=== PATIENT | male | born 1995 | race African-American/Black ===

== ENCOUNTER 2023-04-25 13:03 | Observation (INO) ==
--- NOTE | 2023-04-25 13:28 | Emergency Department Note ---
Impression & Plan Chest pain, Elevated lipase ED Provider Note CHIEF COMPLAINT: Chest pain HISTORY OF PRESENT ILLNESS: This 27-year-old male patient presents to the emergency department via private vehicle for evaluation of chest pain. The patient states he has been experiencing chest pain for about 4 years. This is intermittent, sometimes with exertion, sometimes with lying flat. Patient states today at work, he noticed he had about 1 minute of sharp chest pain "in my heart". The patient states that the pain went away on its own. There is no associated shortness of breath. He denies any recent illness or fever. No recent cough or congestion. No history of PE, AR, cardiac disease. The patient denies abdominal pain, nausea, or vomiting. He did not take any medication for the symptoms. He states today, he was walking when the pain started, but notes often over the past 4 years, he will get the pain when lying down and resting. Patient states he does not like to go to doctors and is only here because his mother encouraged him to come in. Patient denies any IV drug use REVIEW OF SYSTEMS: A 10 system review of systems was performed with positives and pertinent negatives listed in the history of present illness. All other systems were reviewed and are negative. ALLERGIES: None PHYSICAL EXAM: VITALS: Vitals are noted on the nurse's note and reviewed by myself. Vital signs stable. GENERAL: This is a 27-year-old male, in no acute distress, nondiaphoretic, well- developed well-nourished. SKIN: The skin was without rashes, erythema, edema, or bruising. There is no tenting of the skin. Capillary refill less than 2 seconds. HEAD: Normocephalic atraumatic. EYES: Conjunctivae without injection, sclerae without icterus. Extraocular movements intact. NOSE: Patent, turbinates without inflammation or discharge. No sinus tenderness. MOUTH: Mucous membranes moist. Tonsils are not enlarged. Pharynx without erythema or exudate. Uvula midline. Airway patent. Tongue does not deviate. NECK: Supple without nuchal rigidity. No lymphadenopathy. Cervical spine is no ntender. No JVD. HEART: Regular rate and rhythm without murmurs gallops or rubs. LUNGS: Clear to auscultation bilaterally without wheezes, rales or rhonchi. No retractions or accessory muscle use. ABDOMEN: Positive bowel sounds x 4. Soft, nontender, without masses or organomegaly. Kwon sign negative. No guarding or rebound tenderness. MUSCULOSKELETAL: No muscle atrophy, erythema, or edema noted. Full range of motion without joint tenderness in all extremities. No tenderness to palpation. Normal gait. Strength 5/5 throughout. NEURO: Patient was alert and oriented to person place and time. No focal neurological deficits. An order was placed for continuous phototypesetting equipment monitor. The monitor showed a normal sinus rhythm at a ventricular rate of 81 bpm, per my interpretation. EKG, per my interpretation: Normal sinus rhythm with a ventricular rate of [address] elevation or depression. No T wave inversion. No history of previous EKGs available for comparison. Repeat EKG, per my interpretation: Normal sinus rhythm with a ventricular rate of [address] elevation or depression. No T wave inversion. No significant change when compared to EKG completed earlier in the day EMERGENCY DEPARTMENT COURSE: The patient was seen and evaluated as above. IV access obtained, labs drawn. Patient was medicated with IV fluids. Labs reviewed by myself. No leukocytosis, anemia, thrombocytopenia. Renal, hepatic function and electrolytes without significant abnormality. Initial troponin was mildly elevated at 25.1. Lipase was elevated at 202. COVID-19 testing was negative. Given the elevated troponin, I did recommend repeat EKG and troponin. This was completed approximately 2-1/2 hours after the onset of the patient's pain. Troponin remained mildly elevated. EKG was unchanged. Given the troponin elevation and the patient's history of pain, as well as the patient's lack of outpatient care, I did recommend admission for further evaluation of his symptoms. The patient was agreeable with the treatment plan. He was given return precautions. All questions answered to the patient's satisfaction prior to discharge. Discharge instructions reviewed, patient was discharged home in good condition. Differential diagnosis includes cardiac ischemia, aortic dissection, pulmonary embolism, pneumothorax, pneumonia, pericarditis, myocarditis, esophageal rupture, GERD, cholecystitis, pancreatitis, musculoskeletal, as well as other pathologies. I attest that I have personally reviewed the patient's current medication list. Patient was found to have normal blood pressure on screening and does not require follow-up. The chart was completed utilizing [employer] voice recognition software. Grammatical errors, random word insertions, pronoun errors, and incomplete sentences are an occasional consequence of this system due to software limitations, ambient noise, and hardware issues. Any formal questions or concerns about the content, text, or information contained within the body of this dictation should be directly addressed to the provider for clarification. Past Med/Surg History Medical History ADHD Surgical History (Updated 04/25/23 @ 17:18 by Nahomy Shah PA-C) No pertinent past surgical history Family History Other Family history unknown Social History Smoking Status: Never smoker Do You Dip or Chew Tobacco: No; Hx Alcohol Use: No Hx Substance Use: Yes Non-Prescribed Medications: Marijuana Preferred Language: Barbadian Communication Ability: Effective Arabic Teacher Required: No Beliefs That Will Affect Care: None Current Living Situation: Significant Other Feels Safe at Home: Yes Safety Concerns: Feels Safe At This Time Assistive Devices: None Allergies Allergies Allergy/AdvReac Type Severity Reaction Status Date / Time No Known Allergies Allergy Unverified 04/25/23 16:54 Home Meds Home Medications Medication Instructions Recorded Confirmed No Known Home Medications 04/25/23 04/25/23 Results & Data (ED) Vital Signs Vital Signs - 24 hr 04/25/23 13:06 04/25/23 13:31 04/25/23 13:32 Temperature 36.0 C L Temperature Source Temporal Artery Scan Pulse Rate 82 74 Pulse Rate [Right Apical] Respiratory Rate 16 Respiratory Effort / Characteristics Respiratory Depth Respiratory Pattern Blood Pressure 135/61 Blood Pressure [Right Arm] Blood Pressure Mean 85 Blood Pressure Mean [Right Arm] Pulse Oximetry 97 99 Oxygen Delivery Method Room Air Room Air Sepsis Recent Fever Within 48 Hours No Sepsis New/Unexplained Change in Mental Status No Sepsis Action Taken by Nursing No Action Required 04/25/23 13:25 04/25/23 14:10 04/25/23 15:00 Temperature Temperature Source Pulse Rate 66 58 L Pulse Rate [Right Apical] 70 Respiratory Rate 18 20 24 Respiratory Effort / Characteristics Non-Labored Spontaneous Respiratory Depth Normal Respiratory Pattern Regular Blood Pressure 138/71 Blood Pressure [Right Arm] 144/72 H Blood Pressure Mean 93 Blood Pressure Mean [Right Arm] 96 Pulse Oximetry 99 99 100 Oxygen Delivery Method Room Air Room Air Room Air Sepsis Recent Fever Within 48 Hours Sepsis New/Unexplained Change in Mental Status Sepsis Action Taken by Nursing 04/25/23 16:19 04/25/23 17:01 Temperature Temperature Source Pulse Rate 74 73 Pulse Rate [Right Apical] Respiratory Rate 21 14 Respiratory Effort / Characteristics Respiratory Depth Respiratory Pattern Blood Pressure 160/72 H 174/109 H Blood Pressure [Right Arm] Blood Pressure Mean 101 130 Blood Pressure Mean [Right Arm] Pulse Oximetry 99 100 Oxygen Delivery Method Room Air Room Air Sepsis Recent Fever Within 48 Hours Sepsis New/Unexplained Change in Mental Status Sepsis Action Taken by Nursing Laboratory Data 04/25/23 13:24 04/25/23 13:24 Lab Results 04/25/23 04/25/23 04/25/23 Range/Units 13:24 13:24 14:52 WBC 6.86 (4.8-10.8) K/ul RBC 5.15 (4.70-6.10) M/uL Hgb 15.1 (14.0-18.0) g/dl Hct 41.6 L (42.0-52.0) % MCV 80.8 (80.0-100.0) fL MCH 29.3 (25.0-34.0) pg MCHC 36.3 H (32.0-36.0) g/dL RDW Std Deviation 36.6 (36.4-46.3) fL RDW Coeff of Matthew 12.6 (11.5-14.5) % Plt Count 292 (130-400) K/uL MPV 9.8 (9.4-12.4) fL Immature Gran % (Auto) 0.1 % Neut % (Auto) 51.9 % Lymph % (Auto) 38.0 % Lamb % (Auto) 8.6 % Eos % (Auto) 1.0 % Baso % (Auto) 0.4 % Neut # (Auto) 3.55 (1.40-6.50) K/uL Lymph # (Auto) 2.61 (1.2-3.4) K/uL Lamb # (Auto) 0.59 (0.11-0.59) K/uL Eos # (Auto) 0.07 (0-0.50) K/uL Baso # (Auto) 0.03 (0-0.2) K/uL Immature Gran # (Auto) 0.01 (0.01-0.20) K/uL Sodium 141 (136-145) mmol/L Potassium 3.9 (3.5-5.1) mmol/L Chloride 107 (98-107) mmol/L Carbon Dioxide 30 (21-32) mmol/L Anion Gap 4 (3-11) BUN 17 (6-23) mg/dl Creatinine 1.20 (0.6-1.4) mg/dl Est Cr Clr Drug Dosing 85.7 ml/min Est GFR ( Amer) 94.8 ml/min Est GFR (Non-Af Amer) 81.8 ml/min BUN/Creatinine Ratio 14.2 (10-20) Glucose 64 L (70-99(Fasting)) mg/dl Calcium 9.3 (8.6-10.3) mg/dl Total Bilirubin 0.2 (0.2-1.0) mg/dl AST 28 (13-39) U/L ALT 22 (7-52) U/L Alkaline Phosphatase 61 (34-104) U/L Troponin I High Sens 25.1 H 22.7 H (0-20) pg/ml Total Protein 7.3 (6.0-8.3) gm/dl Albumin 4.5 (3.4-5.0) gm/dl Globulin 2.8 (2.5-4.0) gm/dl Albumin/Globulin Ratio 1.6 (0.9-2) Lipase 202 H (11-82) U/L SARS-CoV-2, RNA, NAAT (NEGATIVE) 04/25/23 Range/Units 16:19 WBC (4.8-10.8) K/ul RBC (4.70-6.10) M/uL Hgb (14.0-18.0) g/dl Hct (42.0-52.0) % MCV (80.0-100.0) fL MCH (25.0-34.0) pg MCHC (32.0-36.0) g/dL RDW Std Deviation (36.4-46.3) fL RDW Coeff of Matthew (11.5-14.5) % Plt Count (130-400) K/uL MPV (9.4-12.4) fL Immature Gran % (Auto) % Neut % (Auto) % Lymph % (Auto) % Lamb % (Auto) % Eos % (Auto) % Baso % (Auto) % Neut # (Auto) (1.40-6.50) K/uL Lymph # (Auto) (1.2-3.4) K/uL Lamb # (Auto) (0.11-0.59) K/uL Eos # (Auto) (0-0.50) K/uL Baso # (Auto) (0-0.2) K/uL Immature Gran # (Auto) (0.01-0.20) K/uL Sodium (136-145) mmol/L Potassium (3.5-5.1) mmol/L Chloride (98-107) mmol/L Carbon Dioxide (21-32) mmol/L Anion Gap (3-11) BUN (6-23) mg/dl Creatinine (0.6-1.4) mg/dl Est Cr Clr Drug Dosing ml/min Est GFR ( Amer) ml/min Est GFR (Non-Af Amer) ml/min BUN/Creatinine Ratio (10-20) Glucose (70-99(Fasting)) mg/dl Calcium (8.6-10.3) mg/dl Total Bilirubin (0.2-1.0) mg/dl AST (13-39) U/L ALT (7-52) U/L Alkaline Phosphatase (34-104) U/L Troponin I High Sens (0-20) pg/ml Total Protein (6.0-8.3) gm/dl Albumin (3.4-5.0) gm/dl Globulin (2.5-4.0) gm/dl Albumin/Globulin Ratio (0.9-2) Lipase (11-82) U/L SARS-CoV-2, RNA, NAAT NEGATIVE (NEGATIVE) Administered Medications Discontinued Medications Sodium Chloride (Nss 1000ml) 1,000 mls @ 999 mls/hr IV .Q1H1M ONE Stop: 04/25/23 15:14 Last Infusion: 04/25/23 15:49 Dose: 0 mls/hr Documented By: Admin: 04/25/23 14:39 Dose: 999 mls/hr Documented By: EMELY Imaging Data Radiologist's Impression: Chest X-Ray 04/25/23 13:24 XR chest 1V portable CLINICAL HISTORY: Chest pain, nonspecific. COMPARISON STUDY: No previous studies for comparison. FINDINGS: Lung volumes are normal. Lungs are clear. There is no pneumothorax or pleural effusion. Cardiac size is normal. Mediastinal contours are normal. There is no evidence for pulmonary edema. IMPRESSION: No acute cardiopulmonary findings. ACT 112: Negative or not required by law. Electronically signed by: Tony Mayer M.D. 04/25/2023 2:05 PM Discharge Plan Visit Data Chief Complaint: Chest Pain Stated Complaint: CHEST PAIN ED Provider: Jim Dominguez ED Midlevel Provider: Rebecca Solano Discharge Problem: Chest pain, Elevated lipase Patient Disposition: Admitted As Inpatient Discharge Instructions Interventions: ED Discharge Assessment Last Done: 04/25/23 17:29
[2023-04-25 13:49] LABS: Basophils # (auto) 0.03 K/uL (0-0.2); Basophils % (auto) 0.4 %; Eosinophils # (auto) 0.07 K/uL (0-0.50); Hematocrit (blood only) 41.6 % (42.0-52.0); Hemoglobin 15.1 g/dl (14.0-18.0); Immature Granulocytes # (auto) 0.01 K/uL (0.01-0.20); Immature Granulocytes % (auto) 0.1 %; Lymphocytes # (auto) 2.61 K/uL (1.2-3.4); Mean Corpuscular Hemoglobin 29.3 pg (25.0-34.0); Mean Corpuscular Hgb Conc 36.3 g/dL (32.0-36.0); Mean Corpuscular Volume 80.8 fL (80.0-100.0); Mean Platelet Volume 9.8 fL (9.4-12.4); Monocytes # (auto) 0.59 K/uL (0.11-0.59); Monocytes % (auto) 8.6 %; Neutrophils # (auto) 3.55 K/uL (1.40-6.50); Neutrophils % (auto) 51.9 %; Platelet Count 292 K/uL (130-400); RDW Coefficient of Variation 12.6 % (11.5-14.5); RDW Standard Deviation 36.6 fL (36.4-46.3); Red Blood Count 5.15 M/uL (4.70-6.10); White Blood Count 6.86 K/ul (4.8-10.8)
--- NOTE | 2023-04-25 14:06 | XRay Report ---
XR chest 1V portable CLINICAL HISTORY: Chest pain, nonspecific. COMPARISON STUDY: No previous studies for comparison. FINDINGS: Lung volumes are normal. Lungs are clear. There is no pneumothorax or pleural effusion. Car diac size is normal. Mediastinal contours are normal. There is no evidence for pulmonary edema. IMPRESSION: No acute cardiopulmonary findings. ACT 112: Negative or not required by law. Electronically signed by: Tony Mayer M.D. 04/25/2023 2:05 PM
[2023-04-25 14:08] LABS: Albumin Globulin Ratio 1.6 (0.9-2); Albumin Level 4.5 gm/dl (3.4-5.0); BUN Creatinine Ratio 14.2 (10-20); Bilirubin,Total 0.2 mg/dl (0.2-1.0); Calcium 9.3 mg/dl (8.6-10.3); Creatinine Clr Calc Pharmacy 85.7 ml/min; Est GFR (African American) 94.8 ml/min; Est GFR (Non-African American) 81.8 ml/min; Globulin 2.8 gm/dl (2.5-4.0); Potassium 3.9 mmol/L (3.5-5.1); Total Protein 7.3 gm/dl (6.0-8.3)
[2023-04-25 14:12] LABS: Troponin I High Sensitivity 25.1 pg/ml (0-20)
[2023-04-25] MEDS ORDERED: SODIUM CHLORIDE 0.9% 1000ML 1,000 ML IV ONE (14:14)
--- NOTE | 2023-04-25 15:45 | Electrocardiogram Report ---
Test Reason : Blood Pressure : / mmHG Vent. Rate : 072 BPM Atrial Rate : 072 BPM P-R Int : 192 ms QRS Dur : 084 ms QT Int : 374 ms P-R-T Axes : 044 076 071 degrees QTc Int : 409 ms Normal sinus rhythm Cannot rule out Anterior infarct , age undetermined Abnormal ECG No previous ECGs available Confirmed by Juve Leonardo ([id number]) on 04/25/2023 3:44:58 PM Referred By: REFERRED SELF Confirmed By:Juve Leonardo
--- NOTE | 2023-04-25 17:17 | History & Physical Report ---
Date of Service April 25, 2023 Assessment & Plan (1) Chest pain: (2) Elevated lipase: Plan This is a 27-year-old male with past medical history of ADHD who presents with episode of chest pain earlier today that has since resolved. Chest pain Palpitations H/o intermittent left sided chest pain, worse when lying down and more severe today- associated with palpitations and dizziness Hypertensive at 160/72. No dx of HTN but will trial Lopressor 12.5mg x 1 EKG with normal sinus rhythm at 72 bpm. Cannot rule out Anterior infarct , age undetermined PVCs noted on monitor during exam CXR No acute cardiopulmonary findings. Cardiac size normal No known PMH of HTN or heart disease. Does not know family history HS troponin 25.1 -> 22.7 Obtain 2D echo, trend troponin, monitor on telemetry overnight, fasting lipid panel Elevated lipase Lipase 202 on admission with left mid back discomfort but denies nausea, vomiting or epigastric pain Clear liquids for now, consider imaging of abdominal pain if becomes a clearer pancreatitis picture DVT Ppx: SQ heparin Code status: FULL PCP: no PCP but looking to establish with [facility] Dispo: observation telemetry Patient seen in collaboration with Dr. Nelson. Please see addendum. History of Present Illness Chief Complaint: CP Primary Care Provider: NO PCP This is a 27-year-old male with past medical history of ADHD who presents with episode of chest pain earlier today that is since resolved. States he has had similar chest pain intermittently over the past 3 years that he describes as sharp and shooting on the left side that lasts a minute or 2 before resolving. Yesterday, patient was able to play full court basketball without any issues or pain. Today he was walking and work when pain came on suddenly and was more severe than previous episodes and associated with inability to catch his breath, palpitations and then dizziness for 30-60 seconds afterwards. Denies any known cardiac history. Does not know any family history. No history of syncope. Does not feel that pain is associated with anxiety or muscular strain and feels different than that. Uses marijuana but denies tobacco, cocaine or other illicit drug use. Very rare alcohol use. Denies any abdominal pain, nausea, vomiting or changes to appetite. Does have some left upper back discomfort on exam that has been associated with the chest pain earlier today. Denies any recent illness, fever, chills, shortness of breath, wheezing, dysuria, diarrhea or constipation. Denies any [id number] meds or supplements. Does not have a primary care provider and denies undergoing any type of cardiac work-up previously. Allergies Allergy/AdvReac Type Severity Reaction Status Date / Time No Known Allergies Allergy Unverified 04/25/23 16:54 Home Medications Medication Instructions Recorded Confirmed Type No Known Home Medications 04/25/23 04/25/23 History Past Med/Surg History Medical History ADHD Surgical History (Updated 04/25/23 @ 17:18 by Nahomy Shah PA-C) No pertinent past surgical history Family History Other Family history unknown Social History (Updated 04/25/23 @ 17:27 by Nahomy Shah PA-C) Smoking Status: Current every day smoker Hx Alcohol Use: Yes Alcohol Intake Frequency: 2-4 x/Month Hx Substance Use: Yes Non-Prescribed Medications: Marijuana Feels Safe at Home: Yes Review of Systems Review of Systems: At least ten systems reviewed and negative except as noted in the HPI. Physical Exam Physical Exam: General Appearance: WD/WN, vitals as above, NAD, sitting up in bed, pleasant, conversing easily Head: normocephalic, atraumatic Eyes: normal inspection, PERRL, conjunctivae normal, anicteric sclerae ENT: external ear and nose normal, oropharynx normal Neck: normal visual inspection, trachea midline, no thyromegaly Respiratory: normal respiratory effort, lungs clear to auscultation, no wheeze, rales, rhonchi. No accessory muscle use Cardiovascular: regular rate, rhythm, no murmur, normal peripheral pulses, no BLE edema. Vessels: no JVD Chest: normal inspection of chest, chest pain not reproducible on exam Abdomen/GI: normal bowel sounds, soft, nontender, no hepatosplenomegaly Extremities/Musculoskeletal: TTP in midback on left side, no deformity noted. No cyanosis or clubbing, extremities motor strength 5/5 Neurologic: PERRL, EOMI, accommodation nl, no face palsy, no dysarthria, CN's II-XI intact bilaterally and moves all extremities Psychiatric: A+Ox3, euthymic affect Skin: no rashes, normal color, warm/dry Results & Data Results & Data Vital Signs (Past 12 Hours) Vital Signs Temp Pulse Pulse Resp BP BP Pulse Ox 04/25/23 17:01 73 14 174/109 H 100 04/25/23 16:19 74 21 160/72 H 99 04/25/23 15:00 58 L 24 100 04/25/23 14:10 66 20 138/71 99 04/25/23 13:25 70 18 144/72 H 99 04/25/23 13:32 99 04/25/23 13:31 74 04/25/23 13:06 36.0 C L 82 16 135/61 97 O2 Del Method 04/25/23 17:01 Room Air 04/25/23 16:19 Room Air 04/25/23 15:00 Room Air 04/25/23 14:10 Room Air 04/25/23 13:25 Room Air 04/25/23 13:32 Room Air 04/25/23 13:31 04/25/23 13:06 Room Air Laboratory Results Short CBC 04/25/23 Range/Units 13:24 WBC 6.86 (4.8-10.8) K/ul Hgb 15.1 (14.0-18.0) g/dl Hct 41.6 L (42.0-52.0) % Plt Count 292 (130-400) K/uL BMP 04/25/23 13:24 Sodium 141 Potassium 3.9 Chloride 107 Carbon Dioxide 30 BUN 17 Creatinine 1.20 Glucose 64 L Calcium 9.3 Liver Function 04/25/23 Range/Units 13:24 Total Bilirubin 0.2 (0.2-1.0) mg/dl AST 28 (13-39) U/L ALT 22 (7-52) U/L Alkaline Phosphatase 61 (34-104) U/L Albumin 4.5 (3.4-5.0) gm/dl Diagnostic Findings Chest X-Ray 04/25/23 13:24 XR chest 1V portable CLINICAL HISTORY: Chest pain, nonspecific. COMPARISON STUDY: No previous studies for comparison. FINDINGS: Lung volumes are normal. Lungs are clear. There is no pneumothorax or pleural effusion. Cardiac size is normal. Mediastinal contours are normal. There is no evidence for pulmonary edema. IMPRESSION: No acute cardiopulmonary findings. ACT 112: Negative or not required by law. Electronically signed by: Tony Mayer M.D. 04/25/2023 2:05 PM ECG Additional Comments: ECG reviewed: Normal sinus rhythm at 72 bpm. Cannot rule out Anterior infarct , age undetermined Code Status & VTE Plan VTE Prophylaxis Plan VTE Prophylaxis will be ordered: Yes Supervising Physician Co-Signing Physician Notes Mr. Noel is a 27 year old male with pmhx (per chart and pt) of ADHD, marijuana use, and chronic atypical chest pain. He presents for worsening CP. Thus far workup is notable for PVCs. Pt seen and examined at bedside. He reports intermittent chest pain for about 3 years that is becoming more frequent. Pain is located in the bottom part of the left chest, non-radiating, described as tightness, sharp, and currently rated as 3 of 10. Onset and resolution are spontaneous. Episodes are typically brief, lasting seconds to minutes. CP occurs at rest and with activity, but not consistently. For instance, yesterday he worked out and in addition played full court basketball without any problems. Then, just walking while at work the pain came on suddenly. This is the first time he has been lightheaded with an episode. He denies associated diaphoresis, flushing, nausea, and sob. He further denies recent illness, f/c/n/v, cough, congestion, sore throat, abdominal pain, and diarrhea. Remaining 10 pt ROS is reviewed and negative. # atypical CP: unknown FMHX PVCs on tele CXR neg for acute pathology EKG NSR, non specific changes trop mildly elevated at 25.1 -> 22.7 f/u Mg, echo, lipid panel cardiology consulted, appreciate input # elevated BP without hx of HTN: 174/109 possibly d/t anxiety metoprolol prn f/u echo denies illicit drug use other than marijuana. denies cocaine # elevated lipase: incidental lab finding pt denies any GI symptoms abdomen is benign on exam f/u repeat in am, if still elevated consider CT A/P, bowel rest, analgesia, and IVF # marijuana use disorder denies other illicit drug use denies tobacco use, never smoker uses etoh only occasionally (unlikely to be contributing to the problems above) # hypoglycemia: glucose initially 64 not really sure what to make of this is in a young, healthy person with incidental finding of elevated lipase. Consider endocrine consult # ADHD: no longer takes medication for this, stable General: NAD, well nourished, non-toxic appearing Head: NC AT Eyes: anicteric sclera, no conjunctival injection Nose: nares patent Mouth: MMM Neck: supple, trachea midline CV: irreg rhythm, reg rate, S1 S2 Pulm: CTA b/l Abd/GI: + BS, soft, NT, ND, no guarding : no daugherty Ext: no pretibial edema, peripheral pulses intact MSK: normal bulk and tone Neuro: alert, oriented x 3, moving all 4 extremities symmetrically, no focal deficits Psych: pleasant mood and affect Skin: visible skin is warm, dry, and without rash. Pt not fully undressed for exam. Rest per attested note above
[2023-04-25] MEDS ORDERED: METOPROLOL TARTRATE 25 MG TAB PO ONE (18:00)
[2023-04-25] MEDS ORDERED: NITROGLYCERIN SL 0.4 MG/TAB TAB SL PRN (18:52)
[2023-04-25] MEDS ORDERED: POLYETHYLENE (MIRALAX) 17 GM PACK PO PRN (18:52)
[2023-04-25] MEDS ORDERED: ONDANSETRON INJ 2 MG/ML 2 ML VIAL IV PRN (18:52)
[2023-04-25] MEDS ORDERED: ACETAMINOPHEN 325 MG TAB PO PRN (18:52)
[2023-04-25] MEDS: HEPARIN SOD 5,000 UNIT/0.5 ML VIAL SQ SCH (21:19)
[2023-04-26] MEDS: HEPARIN SOD 5,000 UNIT/0.5 ML VIAL SQ SCH ×2 (03:47→11:59)
[2023-04-26 04:02] LABS: Hematocrit (blood only) 40.7 % (42.0-52.0); Hemoglobin 14.4 g/dl (14.0-18.0); Mean Corpuscular Hemoglobin 28.2 pg (25.0-34.0); Mean Corpuscular Hgb Conc 35.4 g/dL (32.0-36.0); Mean Corpuscular Volume 79.8 fL (80.0-100.0); Mean Platelet Volume 9.3 fL (9.4-12.4); Platelet Count 245 K/uL (130-400); RDW Coefficient of Variation 12.4 % (11.5-14.5); RDW Standard Deviation 35.8 fL (36.4-46.3); White Blood Count 5.96 K/ul (4.8-10.8)
[2023-04-26 04:15] LABS: BUN Creatinine Ratio 14.4 (10-20); Calcium 8.8 mg/dl (8.6-10.3); Chol HDL Ratio 4.3 (0-5); Creatinine Clr Calc Pharmacy 94.2 ml/min; Est GFR (African American) 96.8 ml/min; Est GFR (Non-African American) 83.5 ml/min; Potassium 4.1 mmol/L (3.5-5.1)
--- NOTE | 2023-04-26 12:02 | Cardiology Consultation ---
Date of Consultation April 26, 2023 Assessment & Plan (1) Atypical chest pain: 27-year-old male presents with symptoms of sharp jabbing pain atypical for angina. EKG is normal echocardiogram normal 1 elevation after greater than 3 hours very vigorous exercise. No findings to suggest myocardial injury or is chemia. Symptoms not consistent with angina or heart pain Echocardiogram with mild left hypertrophy and borderline elevation of blood pressures on presentation Will require PCP follow-up for borderline hypertension Recommend avoiding stimulants or supplements containing high caffeine load Given mild left hypertrophy at age 27 iron screen performed History of Present Illness Reason for Consultation: Chest pain Requesting Physician: Dr. Welsh Attending Physician: Javier Welsh MD History of Present Illness Patient is a 27-year-old male without prior history of structural heart disease or known cardiovascular risk factors (family history unavailable) who presents for evaluation of sharp jabbing chest pain. Notes intermittent episodes months/years. No associated dizziness lightheadedness shortness of breath tachypalpitations syncope or near syncope. No exercise relationship with patient extremely active with good tolerance No recent fevers chills or unexplained infections. No bleeding difficulties. No stimulants or [id number] medications, preworkout supplement Appetite and weight are stable. Sleeps well at night. Does admit to significant stress at times Allergies Allergy/AdvReac Type Severity Reaction Status Date / Time No Known Allergies Allergy Unverified 04/25/23 16:54 Home Medications Medication Instructions Recorded Confirmed Type No Known Home Medications 04/25/23 04/25/23 History Patient History Medical History ADHD Surgical History (Updated 04/25/23 @ 17:18 by Nahomy Shah PA-C) No pertinent past surgical history Family History Other Family history unknown Social History Smoking Status: Never smoker Do You Dip or Chew Tobacco: No; Hx Alcohol Use: No Hx Substance Use: Yes Non-Prescribed Medications: Marijuana Preferred Language: Vietnamese Communication Ability: Effective Media Planner / Buyer Required: No Beliefs That Will Affect Care: None Current Living Situation: Significant Other Feels Safe at Home: Yes Safety Concerns: Feels Safe At This Time Assistive Devices: None Review of Systems Review of Systems: All systems reviewed & are unremarkable except as noted in HPI & below Physical Exam Constitutional: WD/WN, vitals as above Eyes: PERRL, conjunctivae normal, anicteric sclerae ENMT: external ear and nose normal, oropharynx normal Neck: trachea midline, no thyromegaly Respiratory: normal respiratory effort, lungs clear to auscultation Cardiovascular: Rate/Rhythm: regular rate and regular rhythm Heart Sounds: normal S1 and normal S2; no gallop and no murmur Palpation: normal PMI Vessels: normal carotid upstroke and radial pulses present; no JVD and no carotid bruit Extremities: no edema Gastrointestinal (Abdomen): normal bowel sounds, soft, nontender, no hepatosplenomegaly Musculoskeletal: no cyanosis or clubbing, extremities motor strength 5/5 Skin: no rashes, warm and dry Neurologic: PERRL, EOMI, accommodation nl, no face palsy, no dysarthria Psychiatric: A+Ox3, euthymic affect Results & Data Vital Signs (Past 12 Hours) Vital Signs Temp Pulse Pulse Resp BP BP Pulse Ox 04/26/23 07:54 36.9 C 70 16 144/83 H 98 04/26/23 07:42 63 04/26/23 03:49 36.6 C 62 16 158/68 H 97 O2 Del Method 04/26/23 07:54 Room Air 04/26/23 07:42 04/26/23 03:49 Room Air Laboratory Results Laboratory Results - last 24 hr 04/25/23 04/25/23 04/25/23 13:24 13:24 14:52 WBC 6.86 RBC 5.15 Hgb 15.1 Hct 41.6 L MCV 80.8 MCH 29.3 MCHC 36.3 H RDW Std Deviation 36.6 RDW Coeff of Matthew 12.6 Plt Count 292 MPV 9.8 Immature Gran % (Auto) 0.1 Neut % (Auto) 51.9 Lymph % (Auto) 38.0 [place] % (Auto) 8.6 Eos % (Auto) 1.0 Baso % (Auto) 0.4 Neut # (Auto) 3.55 Lymph # (Auto) 2.61 [place] # (Auto) 0.59 Eos # (Auto) 0.07 Baso # (Auto) 0.03 Immature Gran # (Auto) 0.01 Sodium 141 Potassium 3.9 Chloride 107 Carbon Dioxide 30 Anion Gap 4 BUN 17 Creatinine 1.20 Est Cr Clr Drug Dosing 85.7 Est GFR ( Amer) 94.8 Est GFR (Non-Af Amer) 81.8 BUN/Creatinine Ratio 14.2 Glucose 64 L POC Glucose Calcium 9.3 Total Bilirubin 0.2 AST 28 ALT 22 Alkaline Phosphatase 61 Troponin I High Sens 25.1 H 22.7 H Total Protein 7.3 Albumin 4.5 Globulin 2.8 Albumin/Globulin Ratio 1.6 Triglycerides Cholesterol LDL Cholesterol, Calc VLDL Cholesterol, Calc HDL Cholesterol Cholesterol/HDL Ratio Lipase 202 H SARS-CoV-2, RNA, NAAT 04/25/23 04/25/23 04/25/23 16:19 18:03 21:09 WBC RBC Hgb Hct MCV MCH MCHC RDW Std Deviation RDW Coeff of Matthew Plt Count MPV Immature Gran % (Auto) Neut % (Auto) Lymph % (Auto) [place] % (Auto) Eos % (Auto) Baso % (Auto) Neut # (Auto) Lymph # (Auto) [place] # (Auto) Eos # (Auto) Baso # (Auto) Immature Gran # (Auto) Sodium Potassium Chloride Carbon Dioxide Anion Gap BUN Creatinine Est Cr Clr Drug Dosing Est GFR ( Amer) Est GFR (Non-Af Amer) BUN/Creatinine Ratio Glucose POC Glucose 89 Calcium Total Bilirubin AST ALT Alkaline Phosphatase Troponin I High Sens 17.3 D Total Protein Albumin Globulin Albumin/Globulin Ratio Triglycerides Cholesterol LDL Cholesterol, Calc VLDL Cholesterol, Calc HDL Cholesterol Cholesterol/HDL Ratio Lipase SARS-CoV-2, RNA, NAAT NEGATIVE 04/26/23 04/26/23 04/26/23 03:46 03:46 03:46 WBC 5.96 RBC 5.10 Hgb 14.4 Hct 40.7 L MCV 79.8 L MCH 28.2 MCHC 35.4 RDW Std Deviation 35.8 L RDW Coeff of Matthew 12.4 Plt Count 245 MPV 9.3 L Immature Gran % (Auto) Neut % (Auto) Lymph % (Auto) [place] % (Auto) Eos % (Auto) Baso % (Auto) Neut # (Auto) Lymph # (Auto) [place] # (Auto) Eos # (Auto) Baso # (Auto) Immature Gran # (Auto) Sodium 140 Potassium 4.1 Chloride 110 H Carbon Dioxide 25 Anion Gap 5 BUN 17 Creatinine 1.18 Est Cr Clr Drug Dosing 94.2 Est GFR ( Amer) 96.8 Est GFR (Non-Af Amer) 83.5 BUN/Creatinine Ratio 14.4 Glucose 99 POC Glucose Calcium 8.8 Total Bilirubin AST ALT Alkaline Phosphatase Troponin I High Sens 11.9 D Total Protein Albumin Globulin Albumin/Globulin Ratio Triglycerides 169 H Cholesterol 191 LDL Cholesterol, Calc 113 VLDL Cholesterol, Calc 34 H HDL Cholesterol 44 Cholesterol/HDL Ratio 4.3 Lipase 112 H SARS-CoV-2, RNA, NAAT Diagnostic Findings Echocardiogram 04/26/2023 Mild left hypertrophy with normal hyperdynamic LV function no wall motion abnormalities, no valvular disease
[2023-04-26 13:11] LABS: Ferritin 62.6 ng/ml (8-388)
--- NOTE | 2023-04-26 15:20 | Discharge Summary ---
Date of Service April 26, 2023 Admission HPI Per Admitting Provider This is a 27-year-old male with past medical history of ADHD who presents with episode of chest pain earlier today that is since resolved. States he has had similar chest pain intermittently over the past 3 years that he describes as sharp and shooting on the left side that lasts a minute or 2 before resolving. Yesterday, patient was able to play full court basketball without any issues or pain. Today he was walking and work when pain came on suddenly and was more severe than previous episodes and associated with inability to catch his breath, palpitations and then dizziness for 30-60 seconds afterwards. Denies any known cardiac history. Does not know any family history. No history of syncope. Does not feel that pain is associated with anxiety or muscular strain and feels different than that. Uses marijuana but denies tobacco, cocaine or other illicit drug use. Very rare alcohol use. Denies any abdominal pain, nausea, vomiting or changes to appetite. Does have some left upper back discomfort on exam that has been associated with the chest pain earlier today. Denies any recent illness, fever, chills, shortness of breath, wheezing, dysuria, diarrhea or constipation. Denies any [id number] meds or supplements. Does not have a primary care provider and denies undergoing any type of cardiac work-up previously. Admission Exam Per Admitting Provider General Appearance:WD/WN, vitals as above, NAD, sitting up in bed, pleasant, conversing easily Head: normocephalic, atraumatic Eyes:normal inspection, PERRL, conjunctivae normal, anicteric sclerae ENT: external ear and nose normal, oropharynx normal Neck: normal visual inspection, trachea midline, no thyromegaly Respiratory:normal respiratory effort, lungs clear to auscultation, no wheeze, rales, rhonchi. No accessory muscle use Cardiovascular: regular rate, rhythm, no murmur, normal peripheral pulses, no BLE edema. Vessels: no JVD Chest: normal inspection of chest, chest pain not reproducible on exam Abdomen/GI: normal bowel sounds, soft, nontender, no hepatosplenomegaly Extremities/Musculoskeletal:TTP in midback on left side, no deformity noted. No cyanosis or clubbing, extremities motor strength 5/5 Neurologic: PERRL, EOMI, accommodation nl, no face palsy, no dysarthria, CN's II-XI intact bilaterally and moves all extremities Psychiatric:A+Ox3, euthymic affect Skin: no rashes, normal color, warm/dry Principal Diagnosis Chest pain, ACS ruled out Discharge Exam Constitutional: WD/WN, vitals as above, NAD, sitting up in bed, pleasant, conversing easily Respiratory: normal respiratory effort, lungs clear to auscultation, no wheeze, rales, rhonchi. Normal insp/exp effort, no accessory muscle use Cardiovascular: RRR, no murmur, no edema Vessels: no JVD or carotid bruit Chest: normal inspection of chest Abdomen: normal bowel sounds, soft, nontender, no hepatosplenomegaly Musculoskeletal: no cyanosis or clubbing, extremities motor strength 5/5 Skin: no rashes, warm and dry normal turgor Neurologic: PERRL, EOMI, accommodation nl, no face palsy, no dysarthria CN's II- XI intact bilaterally and moves all extremities Psychiatric: A+Ox3, euthymic affect Discharge Data Allergies Allergy/AdvReac Type Severity Reaction Status Date / Time No Known Allergies Allergy Unverified 04/25/23 16:54 Consultations 04/25/23 16:26 ED Decision to Admit Stat 04/25/23 17:50 Consult Cardiology Routine Hospital Course (1) Chest pain: (2) Elevated lipase: Plan This is a 27-year-old male with past medical history of ADHD who presents with episode of chest pain. Patient reported intermittent episodes for months/years. No associated dizziness lightheadedness shortness of breath palpitations syncope or near syncope. EKG done showed normal sinus rhythm with no significant ST or T wave changes. Echocardiogram showed mild left hypertrophy. EF of 65 to 70%. Cardiology evaluated the patient; iron screen performed; serum iron, transferrin and ferritin within normal limits. During the hospitalization patient was found to have elevated blood pressure. Recommend outpatient follow-up with primary care doctor and monitoring of blood pressure as outpatient. Total Time Total Time Spent Total Time Spent (In Minutes): 40 Total Time Includes: Examination of the Patient, Discharge Planning, Medication Reconciliation, Communication With Other Providers and Other Discharge Plan Discharge Items Patient Disposition: Home - Self-Care Reason For Visit: CHEST PAIN Discharge Diagnosis: Chest pain, ACS ruled out Activity: Resume your previous activity Non-emergency contact: Primary Care Provider Call non-emergency contact if: you have any medication questions Follow-up/Referrals: PCP,NO [Primary Care Provider] - Diet: Regular Addtl Attending Provider Instructions: You were admitted to the hospital with chest pain. Work-up done during the hospitalization did not show any significant abnormality. You are a evaluated by lan manager during the hospitalization. Your blood pressure was found to be slightly on the higher side during the hospitalization. An appointment will be set up for you with a primary care doctor to establish care and monitor high blood pressure. No medication is prescribed at this time. Pending Studies at Discharge: No Stand-Alone Forms: [facility] [place], Smoking Cessation Medications and DC Order Prescriptions: No Action No Known Home Medications Discharge Orders: Discharge Order (Routine); Ordered 04/26/23 Ordered By: Javier Welsh Admission Data Admit Date/Time: 04/25/23 17:13 Attending Provider: Javier Welsh Admit Provider: Carlita Nelson Primary Care Provider: PCP,NO Other Providers: Carlita Nelson ; Gerry Toribio Other Interventions: Discharge Summary Assessment (RN) Last Done: 04/26/23 13:20
--- NOTE | 2023-04-26 17:01 | Electrocardiogram Report ---
Test Reason : Blood Pressure : / mmHG Vent. Rate : 069 BPM Atrial Rate : 069 BPM P-R Int : 194 ms QRS Dur : 068 ms QT Int : 402 ms P-R-T Axes : 045 078 075 degrees QTc Int : 430 ms Normal sinus rhythm Cannot rule out Anterior infarct (cited on or before 25-APR-2023) Abnormal ECG When compared with ECG of 25-APR-2023 13:11, No significant change was found Confirmed by Poncho Gonzales ([id number]) on 04/26/2023 5:01:30 PM Referred By: REFERRED SELF Confirmed By:Poncho Gonzales
--- NOTE | 2023-04-26 17:58 | Electrocardiogram Report ---
Test Reason : Blood Pressure : / mmHG Vent. Rate : 064 BPM Atrial Rate : 064 BPM P-R Int : 196 ms QRS Dur : 074 ms QT Int : 422 ms P-R-T Axes : 040 073 070 degrees QTc Int : 435 ms Normal sinus rhythm Normal ECG When compared with ECG of 25-APR-2023 15:25, (unconfirmed) No significant change was found Confirmed by Poncho Gonzales ([id number]) on 04/26/2023 5:57:42 PM Referred By: REFERRED SELF Confirmed By:Poncho Gonzales
== END 2023-04-26 13:55 | disposition home or self-care (01) ==
LOC: 4W 13:03 → ED 13:03 → SUATTDRO 17:13 → 4W 17:29